=== PATIENT | male | born 1985 | race Hispanic/Latino ===

== ENCOUNTER 2017-04-12 17:31 | Emergency (ER) | payer SELFPAY ==
[2017-04-12 17:31] VITALS: BMI 25.8
[2017-04-12 18:04] VITALS: BP 122/73; PULSE 61; RESP 18; TEMP 98; O2SAT 100
--- NOTE | 2017-04-12 19:40 | C.PDOC ---
History Of Present Illness Pt is here requesting detox from Heroin. Time Seen by Provider: 04/12/17 19:16 Chief Complaint (Nursing): Substance Abuse History Per: Patient Onset/Duration Of Symptoms: Days Current Symptoms Are (Timing): Still Present Suicide/Self Injury Attempted (Context): None Modifying Factor(s): Narcotics Severity: Moderate Associated Symptoms: denies: Suicidal Thoughts, Suicidal Plan Additional History Per: Prior Records Past Medical History Reviewed: Historical Data, Nursing Documentation, Vital Signs Vital Signs: Last Vital Signs Temp 98 F 04/12/17 18:00 Pulse 61 04/12/17 18:00 Resp 18 04/12/17 18:00 BP 122/73 04/12/17 18:00 Pulse Ox 100 04/12/17 18:00 - Medical History PMH: Anxiety, Cardia Arrhythmia (SVT), Depression, Fractures (Tibia), Kidney Stones, Chronic Kidney Disease Surgical History: Appendectomy - [facility] Procedures DETOXIFICATION SERVICES FOR SUBSTANCE ABUSE TREATMENT (09/13/16) GROUP COMPUTER ENGINEERING PROFESSOR FOR SUBSTANCE ABUSE TREATMENT, PSYCHOEDUCATION (02/23/16) INDIV PSYCHOTHERAPY FOR SUBSTANCE ABUSE TREATMENT, SUPPORT (09/13/16) INDIV PSYCHOTHERAPY FOR SUBSTANCE ABUSE, COGNITIV BEHAVIORAL (09/13/16) PHARMACOTHERAPY FOR SUBSTANCE ABUSE TREATMENT, ANTABUSE (09/13/16) Family History: States: Unknown Family Hx - Social History Hx Tobacco Use: Yes Hx Alcohol Use: Yes Hx Substance Use: Yes (IVDU Heroin) - Immunization History Hx Tetanus Toxoid Vaccination: No Hx Influenza Vaccination: No Hx Pneumococcal Vaccination: No Review Of Systems Except As Marked, All Systems Reviewed And Found Negative. Constitutional: Negative for: Fever, Weakness Cardiovascular: Negative for: Chest Pain Respiratory: Negative for: Shortness of Breath Gastrointestinal: Negative for: Vomiting, Abdominal Pain Musculoskeletal: Negative for: Neck Pain Neurological: Negative for: Weakness, Numbness, Seizures Psych: Negative for: Psychosis Physical Exam - Physical Exam Appears: Non-toxic, No Acute Distress Skin: Normal Color, Warm, Dry, No Rash Head: Atraumatic, Normacephalic Eye(s): bilateral: PERRL, EOMI Neck: Normal ROM, No Midline Cervical Tenderness, No Step Off Deformity, Supple Cardiovascular: Rhythm Regular Respiratory: Normal Breath Sounds, No Accessory Muscle Use Gastrointestinal/Abdominal: Soft, No Tenderness Back: No Vertebral Tenderness Extremity: Normal ROM, Other (Track henao on arms) Neurological/Psych: Oriented x3, Normal Motor, Normal Sensation ED Course And Treatment O2 Sat by Pulse Oximetry: 100 Pulse Ox Interpretation: Normal Progress Note: There are no available detox beds tonight. Pt was given a list of available detox programs and a number to call back our program for bed availability. Disposition Counseled Patient/Family Regarding: Diagnosis, Need For Followup - Disposition Disposition: HOME/ ROUTINE Disposition Time: 19:40 Condition: STABLE Additional Instructions: Follow up with your doctor and with a detox program. Return to the ER if you develop worsening of symptoms or if you have any other concerns. Instructions: Narcotic Abuse (ED) - Clinical Impression Clinical Impression: Heroin abuse
== END 2017-04-12 20:01 | disposition home or self-care (01) ==
LOC: C.ER 17:31
DX: F11.10 Opioid abuse, uncomplicated (principal)

== ENCOUNTER 2017-08-07 00:23 | Emergency (ER) | payer SELFPAY ==
[2017-08-07 00:24] VITALS: BMI 25.8
[2017-08-07 00:50] VITALS: BP 120/72; PULSE 95; RESP 20; TEMP 98.2; O2SAT 96
--- NOTE | 2017-08-07 00:57 | C.PDOC ---
History Of Present Illness 31 year old male, whose PMHx includdes IV Drug Abuse, presents to the ED for evaluation of redness to the injection site on his right hand which began around 2 days ago. Patient is also requesting heroin detox and denies fever, chills, or hand trauma at this time. Time Seen by Provider: 08/07/17 00:46 Chief Complaint (Nursing): Upper Extremity Problem/Injury History Per: Patient History/Exam Limitations: no limitations Onset/Duration Of Symptoms: Hrs Current Symptoms Are (Timing): Still Present Quality: "Pain" Additional History Per: Patient Past Medical History Reviewed: Historical Data, Nursing Documentation, Vital Signs Vital Signs: Last Vital Signs Temp 98.2 F 08/07/17 00:42 Pulse 95 H 08/07/17 00:42 Resp 20 08/07/17 00:42 BP 120/72 08/07/17 00:42 Pulse Ox 96 08/07/17 04:33 - Medical History PMH: Anxiety, Cardia Arrhythmia (SVT), Depression, Fractures (Tibia), Kidney Stones, Chronic Kidney Disease Denies: HIV, HTN, Seizures, Sexually Transmitted Disease Surgical History: Appendectomy - [facility] Procedures DETOXIFICATION SERVICES FOR SUBSTANCE ABUSE TREATMENT (09/13/16) GROUP RUG TOUCH UP PAINTER FOR SUBSTANCE ABUSE TREATMENT, PSYCHOEDUCATION (02/23/16) INDIV PSYCHOTHERAPY FOR SUBSTANCE ABUSE TREATMENT, SUPPORT (09/13/16) INDIV PSYCHOTHERAPY FOR SUBSTANCE ABUSE, COGNITIV BEHAVIORAL (09/13/16) PHARMACOTHERAPY FOR SUBSTANCE ABUSE TREATMENT, ANTABUSE (09/13/16) Family History: States: Unknown Family Hx - Social History Hx Tobacco Use: Yes Hx Alcohol Use: Yes Hx Substance Use: Yes (IVDU Heroin) - Immunization History Hx Tetanus Toxoid Vaccination: No Hx Influenza Vaccination: No Hx Pneumococcal Vaccination: No Review Of Systems Constitutional: Negative for: Fever, Chills Musculoskeletal: Positive for: Hand Pain (right ) Psych: Positive for: Other (requesting heroin detox ) Physical Exam - Physical Exam Appears: Non-toxic, No Acute Distress Skin: Normal Color, Warm, Dry, Other (small scattered puncture wounds and localized erythema to dorsal aspect of right hand and wrist. no proximal streaking. no fluctuance. Multiple puncture wounds noted to left hand. No erythema or swelling ) Head: Atraumatic, Normacephalic Eye(s): bilateral: Normal Inspection Chest: Symmetrical, No Deformity Cardiovascular: Rhythm Regular Respiratory: Normal Breath Sounds Extremity: Normal ROM, No Tenderness, Capillary Refill (less than 2 seconds ), No Deformity, Swelling (minimal, to dorsal aspect of right hand and wrist ) Pulses: Left Radial: Normal, Right Radial: Normal Neurological/Psych: Oriented x3, Normal Speech, Normal Cognition Gait: Steady ED Course And Treatment O2 Sat by Pulse Oximetry: 96 (on RA) Pulse Ox Interpretation: Normal Progress Note: Patient received Bactrim PO and Keflex PO. Case discussed with driver utility worker, Joanna, who evaluated patient at bedside. Patient was informed about the unavailability of detox beds at this time. Patient is resting comfortably and is stable for discharge. Patient was provided with information to inquire about future availability of beds and is advised to return to ED for wound check in 2 days and follow up with his PMD/clinic within 1-2 days for further evaluation. Disposition Counseled Patient/Family Regarding: Diagnosis, Need For Followup, Rx Given - Disposition Referrals: [facility] [Outside] Disposition: HOME/ ROUTINE Disposition Time: 00:53 Condition: STABLE Additional Instructions: Apply warm compress to area Take meds as directed wound check in 2 days Return to ER if worse Prescriptions: Cephalexin [cephalexin] 500 mg PO QID #28 cap Sulfamethoxazole/Trimethoprim [Bactrim DS 800 mg-160 mg] 1 tab PO BID #14 tab Instructions: Cellulitis (ED) Forms: [facility] (Czech) - Clinical Impression Clinical Impression: Cellulitis, Heroin abuse, Intravenous drug abuse - PA / TRUCK OPERATOR / Resident Statement MD/DO has reviewed & agrees with the documentation as recorded. - Scribe Statement The provider has reviewed the documentation as recorded by the Scribe (Elva Fitzpatrick) All medical record entries made by the Scribe were at my direction and personally dictated by me. I have reviewed the chart and agree that the record accurately reflects my personal performance of the history, physical exam, medical decision making, and the department course for this patient. I have also personally directed, reviewed, and agree with the discharge instructions and disposition.
[2017-08-07] MEDS ORDERED: Tmp-Smz 800 mg-160 mg DS Tab PO STA (00:58)
[2017-08-07] MEDS ORDERED: Tmp-Smz 800 mg-160 mg DS Tab ONE (00:58)
== END 2017-08-07 01:09 | disposition home or self-care (01) ==
LOC: C.ER 00:23
DX: F11.10 Opioid abuse, uncomplicated (principal); L03.113 Cellulitis of right upper limb; Z87.891 Personal history of nicotine dependence; N18.9 Chronic kidney disease, unspecified; I47.1 Supraventricular tachycardia; I49.9 Cardiac arrhythmia, unspecified

== ENCOUNTER 2018-12-17 23:42 | Emergency (ER) | payer MEDICAID, MEDICARE, OTHER ==
[2018-12-17 23:42] VITALS: BMI 25.8
[2018-12-17 23:49] VITALS: RESP 16; TEMP 98; O2SAT 99
--- NOTE | 2018-12-17 23:56 | C.PDOC ---
History Of Present Illness 33 year old male is brought to the ED by ambulance and [facility] for medical clearance for incarceration Patient admits to using around 30-40 bags of heroin intravenously, to his bilateral ankle veins. Patient denies suicidal/homicidal ideation, nausea, vomiting, diarrhea. Time Seen by Provider: 12/17/18 23:53 Chief Complaint (Nursing): Substance Abuse History Per: Patient History/Exam Limitations: no limitations Onset/Duration Of Symptoms: Hrs Current Symptoms Are (Timing): Still Present Modifying Factor(s): Other (heroin) Additional History Per: Patient, Law Enforcement Past Medical History Reviewed: Historical Data, Nursing Documentation, Vital Signs Vital Signs: Last Vital Signs Temp 98 F 12/17/18 23:44 Pulse 67 12/17/18 23:44 Resp 16 12/17/18 23:44 BP 131/67 12/17/18 23:44 Pulse Ox 99 12/17/18 23:44 - Medical History PMH: Anxiety, Cardia Arrhythmia (SVT), Depression, Fractures (Tibia), Kidney Stones Denies: HIV, HTN, Chronic Kidney Disease, Seizures, Sexually Transmitted Disease Surgical History: Appendectomy - [facility] Procedures DETOXIFICATION SERVICES FOR SUBSTANCE ABUSE TREATMENT (09/13/16) GROUP PROPELLER LAYOUT WORKER FOR SUBSTANCE ABUSE TREATMENT, PSYCHOEDUCATION (02/23/16) INDIV PSYCHOTHERAPY FOR SUBSTANCE ABUSE TREATMENT, SUPPORT (09/13/16) INDIV PSYCHOTHERAPY FOR SUBSTANCE ABUSE, COGNITIV BEHAVIORAL (09/13/16) PHARMACOTHERAPY FOR SUBSTANCE ABUSE TREATMENT, ANTABUSE (09/13/16) Family History: States: Unknown Family Hx - Social History Hx Tobacco Use: Yes Hx Alcohol Use: Yes Hx Substance Use: Yes - Immunization History Hx Tetanus Toxoid Vaccination: No Hx Influenza Vaccination: No Hx Pneumococcal Vaccination: No Review Of Systems Gastrointestinal: Negative for: Nausea, Vomiting, Diarrhea Psych: Positive for: Withdrawal (heroin ) Physical Exam - Physical Exam Appears: Non-toxic, No Acute Distress Skin: Normal Color, Warm, Dry Head: Atraumatic, Normacephalic Eye(s): bilateral: Normal Inspection, PERRL, EOMI Oral Mucosa: Moist Neck: Supple Chest: Symmetrical, No Deformity, No Tenderness Extremity: Normal ROM, Capillary Refill (less than 2 seconds ), Other (track henao to bilateral ankle regions. no signs of infection ) Pulses: Left Dorsalis Pedis: Normal, Right Dorsalis Pedis: Normal Neurological/Psych: Normal Speech, Normal Cognition ED Course And Treatment O2 Sat by Pulse Oximetry: 99 (on RA) Pulse Ox Interpretation: Normal Medical Decision Making Medical Decision Making: heroine abuse, BIBA/[employer] under arrest. 30-40 bags/day tract henao b/l ankles, not infected normal pupils, no w/d s/s now Medically cleared for incarceration Disposition Doctor Will See Patient In The: Office Counseled Patient/Family Regarding: Studies Performed, Diagnosis - Disposition Referrals: Alcoholics Anonymous [Outside] [facility] [Outside] [facility] [Outside] [facility] [Outside] [facility] [Outside] [facility] [Outside] Disposition: HOME/ ROUTINE Disposition Time: 23:55 Condition: GOOD Additional Instructions: PT IS MEDICALLY CLEARED FOR INCARCERATION Instructions: Opioid Use Disorder Forms: [facility] (Georgian) - Clinical Impression Clinical Impression: Heroin abuse - Scribe Statement The provider has reviewed the documentation as recorded by the Scribe (Elva Fitzpatrick) Provider Attestation: All medical record entries made by the Scribe were at my direction and personally dictated by me. I have reviewed the chart and agree that the record accurately reflects my personal performance of the history, physical exam, medical decision making, and the department course for this patient. I have also personally directed, reviewed, and agree with the discharge instructions and di sposition.
[2018-12-18 00:17] VITALS: BP 120/60; PULSE 65
== END 2018-12-18 00:13 | disposition home or self-care (01) ==
LOC: C.ER 23:42
DX: F11.10 Opioid abuse, uncomplicated (principal)

== ENCOUNTER 2019-01-05 10:34 | Inpatient (IN) | payer MEDICAID, OTHER ==
[2019-01-05 10:34] VITALS: BMI 25.8
[2019-01-05 11:28] LABS: SQUAMOUS EPITHIAL < 1 /hpf (0-5); URINE BILIRUBIN NEGATIVE (NEGATIVE); URINE BLOOD NEGATIVE (NEGATIVE); URINE CLARITY Clear (Clear); URINE COLOR Yellow (YELLOW); URINE GLUCOSE (UA) NORMAL (Normal); URINE LEUKOCYTE ESTERASE NEG Leu/uL (Negative); URINE PROTEIN NEGATIVE (NEGATIVE); URINE UROBILINOGEN NORMAL mg/dL (0.2-1.0)
--- NOTE | 2019-01-05 11:34 | C.PDOC ---
History Of Present Illness 33 year old male presents to ED requesting detox from heroin and Xanax. Patient states that he last used today at around 1 am. Patient states that he is currently taking azithromycin. Patient admits to smoking and drinking. Patient h as a PMHx of SVT. Patient has no other physical complaints. Time Seen by Provider: 01/05/19 10:49 Chief Complaint (Nursing): Substance Abuse History Per: Patient History/Exam Limitations: no limitations Current Symptoms Are (Timing): Still Present Suicide/Self Injury Attempted (Context): None Modifying Factor(s): Other (heroin, xanax) Associated Symptoms: denies: Suicidal Thoughts, Suicidal Plan Past Medical History Reviewed: Historical Data, Nursing Documentation, Vital Signs Vital Signs: Last Vital Signs Temp 97.4 F L 01/05/19 10:40 Pulse 69 01/05/19 10:40 Resp 18 01/05/19 10:40 BP 133/77 01/05/19 10:40 Pulse Ox 99 01/05/19 10:40 - Medical History PMH: Anxiety, Cardia Arrhythmia (SVT), Depression, Fractures (Tibia), Kidney St ones, Chronic Kidney Disease Denies: HIV, HTN, Seizures, Sexually Transmitted Disease Surgical History: Appendectomy - [facility] Procedures DETOXIFICATION SERVICES FOR SUBSTANCE ABUSE TREATMENT (09/13/16) GROUP BRICK PAVER FOR SUBSTANCE ABUSE TREATMENT, PSYCHOEDUCATION (02/23/16) INDIV PSYCHOTHERAPY FOR SUBSTANCE ABUSE TREATMENT, SUPPORT (09/13/16) INDIV PSYCHOTHERAPY FOR SUBSTANCE ABUSE, COGNITIV BEHAVIORAL (09/13/16) PHARMACOTHERAPY FOR SUBSTANCE ABUSE TREATMENT, ANTABUSE (09/13/16) Family History: States: Unknown Family Hx - Social History Hx Tobacco Use: Yes Hx Alcohol Use: Yes Hx Substance Use: Yes - Immunization History Hx Tetanus Toxoid Vaccination: No Hx Influenza Vaccination: No Hx Pneumococcal Vaccination: No Review Of Systems Constitutional: Negative for: Fever, Chills, Weakness Cardiovascular: Negative for: Chest Pain, Palpitations Respiratory: Negative for: Cough, Shortness of Breath Gastrointestinal: Negative for: Nausea, Vomiting, Abdominal Pain Neurological: Negative for: Weakness, Numbness, Dizziness Psych: Negative for: Suicidal ideation Physical Exam - Physical Exam Appears: Non-toxic, No Acute Distress, Unkempt Skin: Normal Color, Warm, Dry Head: Atraumatic, Normacephalic Eye(s): bilateral: Normal Inspection, PERRL, EOMI Oral Mucosa: Moist Neck: Normal ROM, Supple Chest: Symmetrical Cardiovascular: Rhythm Regular, No Murmur Respiratory: No Accessory Muscle Use, No Rales, No Rhonchi, No Wheezing Gastrointestinal/Abdominal: Soft, No Tenderness Extremity: Other (track henao to the distal medial aspect of the bilateral lower extremities) Pulses: Left Dorsalis Pedis: Normal, Right Dorsalis Pedis: Normal Neurological/Psych: Oriented x3, Normal Speech, Normal Cognition ED Course And Treatment - Laboratory Results Result Diagrams: 01/05/19 11:27 01/05/19 11:27 O2 Sat by Pulse Oximetry: 99 (in RA) Medical Decision Making Medical Decision Making: Impression: 33 year old male presents to ED requesting detox from heroin and Xanax. Plan: Labs ordered with drug screen and UA Patient medically cleared. Updates: 1445: Crisis called. Patient accepted by Dr. Saleem. Disposition - Disposition Disposition: HOSPITALIZED Disposition Time: 14:45 Condition: STABLE Forms: [facility] (Spanish) - POA Present On Arrival: None - Clinical Impression Clinical Impression: Polysubstance abuse - Scribe Statement The provider has reviewed the documentation as recorded by the Scribe (Bhargavi Freed) All medical record entries made by the Scribe were at my direction and personally dictated by me. I have reviewed the chart and agree that the record accurately reflects my personal performance of the history, physical exam, medical decision making, and the department course for this patient. I have also personally directed, reviewed, and agree with the discharge instructions and disposition.
[2019-01-05 11:36] LABS: BASO # 0.1 K/uL (0.0-0.2); BASO % 0.9 % (0.0-2.0); EOS # 0.1 K/uL (0.0-0.7); EOS % 1.1 % (0.0-4.0); HEMOGLOBIN 12.7 g/dL (12.0-18.0); LYMPH # 1.7 K/uL (1.0-4.3); LYMPH % 17.5 % (20.0-40.0); MEAN CELL VOLUME 85.8 fL (80.0-94.0); MEAN CORPUSCULAR HEMOGLOBIN 28.6 pg (27.0-31.0); MEAN CORPUSCULAR HGB CONC 33.3 g/dL (33.0-37.0); MEAN PLATELET VOLUME 10.1 fL (7.2-11.7); MONO # 0.7 K/uL (0.0-0.8); MONO % 6.8 % (0.0-10.0); NEUT # 7.2 K/uL (1.8-7.0); NEUT % 73.7 % (50.0-75.0); NRBC % 0.1 % (0.0-2.0); RBC 4.45 Mil/uL (4.40-5.90); WHITE BLOOD COUNT 9.7 K/uL (4.8-10.8)
[2019-01-05 12:04] LABS: ALB/GLOB RATIO 1.5 (1.0-2.1); ALBUMIN 4.1 g/dL (3.5-5.0); ALT/SGPT 31 U/L (21-72); AST/SGOT 32 U/L (17-59); BLOOD UREA NITROGEN 20 mg/dL (9-20); GFR NON-AFRICAN AMERICAN > 60
[2019-01-05 12:17] LABS: PHENCYCLIDINE, UR NEGATIVE (NEGATIVE)
[2019-01-05 13:28] LABS: BARBITURATES, UR NEGATIVE (NEGATIVE)
[2019-01-05 13:33] LABS: BENZODIAZEPINES, UR POSITIVE (NEGATIVE); OPIATES, UR POSITIVE (NEGATIVE)
--- NOTE | 2019-01-05 16:46 | PCM.BM ---
<Sean Walls - Last Filed: 01/05/19 16:44> Treatment Plan Problems - Problems identified on initial assessmt denial Date Initiated: 01/05/19 Time Initiated: 16:44 Assessment reference: NA Status: Active defensive coping Date Initiated: 01/05/19 Time Initiated: 16:45 Assessment reference: NA Status: Active hopelessness Date Initiated: 01/05/19 Time Initiated: 16:46 Assessment reference: NA Status: Active Treatment assets and liabiliti Patient Assests: adapts well, cooperative, ADL independent, cognitively intact Patient Liabilities: substance abuse, medical problems - Milieu Protocol Maintain good personal hygiene: daily Encourage regular showers, daily Remind patient to perform daily oral care, daily Assist patient to perform ADL's Conduct patient checks and document Observation sheet: Q15 minutes Maintain personal safety: every shift Educate patient to report safety concerns to staff, every shift Monitor environment for contraband/sharps Medication safety: Monitor for expected outcome, potential side effects: every shift, Assess barriers to learning: every shift, Assess readiness for medication education: every shift <Cisco Bailey - Last Filed: 01/07/19 15:10> - Diagnosis (1) Opioid use disorder, severe, dependence Status: Acute Interventions: 01/07/19 15:11 * Assess/adjust medications daily and /or as needed * See patient on an individual basis 7x/week to assess symptoms of depression * Monitor for side effects & effectiveness of medications (2) Sedative, hypnotic or anxiolytic use disorder, severe, dependence Status: Acute Interventions: 01/07/19 15:12 * Assess/adjust medications daily and /or as needed * See patient on an individual basis 7x/week to assess symptoms of depression * Monitor for side effects & effectiveness of medications (3) Cocaine use disorder, severe, dependence Status: Acute Interventions: 01/07/19 15:12 * Assess/adjust medications daily and /or as needed * See patient on an individual basis 7x/week to assess symptoms of depression * Monitor for side effects & effectiveness of medications <Eunice Goldstein - Last Filed: 01/08/19 10:18> Family Contact Family involvement: Famliy/SO not involved - Goals for Treatment Patient goals for treatment: COMPLETE DETOX AND APPLY FOR SHORT-TERM REHAB. Discharge/Continuing Care - Education Needs Education Needs: Patient Medication, Patient Diagnosis/Disease Process, Patient Coping Skills, Patient Anger Management skills, Patient Placement options, Patient Community resources - Discharge Discharge Criteria: Free of agitation, No longer exhibiting s/s of withdrawal, Reduction of target symptoms Discharge to:: Substance Abuse Rehab - Treatment Team Participation Patient/Family/SO Statement: 01/08/19 10:18 "I'LL TRY SHORT-TERM" Discussed with Family/SO: No Was Patient/Family/SO present at Treatment Team Meeting: Yes
[2019-01-05] MEDS ORDERED: Aluminum Hydroxide/Magnesium Hydroxide Susp (30 mL) PO PRN (21:42)
[2019-01-05] MEDS ORDERED: Magnesium Hydroxide Susp 30 ml UD PO PRN (21:42)
--- NOTE | 2019-01-06 16:10 | PCM.PSYCH ---
Initial Psychiatric Evaluation - Initial Psychiatric Evaluation Type of Admission: Voluntary Legal Status: Capacity Chief Complaint (in patient's own words): I am here to detox from my substance use. History of Present Illness and Precipitating Events: Patient is a 33 years old, single, unemployed, male with no previous psychiatric history, was admitted due to withdrawing from heroine and Xanax. Opioid: According to patient he started using heroin about 10 years ago. Before that patient was taking OxyContin which was prescribed. Patient started taking OxyContin more than prescribed and later switched to heroin. Currently he was taking 20-30 bags of heroin daily, IV. His last use of heroin was 2 days ago. His longest period of abstinence was 2-3 months in the past. He has history of 1 previous detox at [facility] in 2016, no rehabs. Anxiolytic: Patient reported he started using Xanax a few years ago, was taking 2-3 stakes of Xanax, each of 2 mg, daily. Last used of Xanax was 2 days ago. Cocaine: Patient reported that he started taking cocaine 10 years ago, was taking 20-30 bottles of cocaine daily, IV. Last use 2 days ago. Patient also smokes 1 pack of cigarettes daily and is requesting for nicotine patch. Patient has extensive legal history. As a youth he was in [place] several times. Patient also served time in [facility] for armed robbery. Patient is not on probation or parole. Patient was born in [place] and has high school graduation. Patient is not working. He is homeless. Never and has no children. Current Medications: Active Medications Generic Name Dose Route Start Last Admin Trade Name Freq PRN Reason Stop Dose Admin Al Hydrox/Mg Hydrox/Simethicone 30 ml 01/05/19 21:42 Maalox 30 Ml PO TID PRN Indigestion / Heartburn Clonidine HCl 0.1 mg 01/05/19 21:33 01/05/19 21:48 Catapres PO 0.1 mg Q4 PRN Administration COWS Score More or Equal to 5 Dicyclomine HCl 10 mg 01/05/19 21:33 Bentyl PO Q6 PRN Muscle spasm Gabapentin 400 mg 01/06/19 10:00 01/06/19 13:41 Neurontin PO 400 mg TID YA Administration Hydroxyzine HCl 50 mg 01/05/19 21:34 01/05/19 21:48 Atarax PO 50 mg Q6H PRN Administration Anxiety Loperamide HCl 2 mg 01/05/19 21:33 Imodium PO Q8 PRN Diarrhea Lorazepam 1 mg 01/06/19 15:30 Ativan PO 01/10/19 15:29 Q4 YA Taper Magnesium Hydroxide 30 ml 01/05/19 21:42 Milk Of Magnesia PO 01/08/19 10:01 BID PRN Constipation Methadone HCl 15 mg 01/07/19 10:00 Methadone PO 01/10/19 09:59 Q24H YA Taper Nicotine 1 patch 01/06/19 10:00 01/06/19 10:57 Nicoderm Cq TD 1 patch DAILY YA Administration Trazodone HCl 100 mg 01/05/19 21:36 01/05/19 21:48 Desyrel PO 100 mg HS PRN Administration Sleep Past Psychiatric History - Past Psychiatric History Previous Treatment History: Inpatient [facility]: [facility] History of Abuse: None reported History of ETOH/Drug Use: See HPI History of Family Illness: None reported Pertinent Medical Hx (Current Medical&Sleep Prob, Allergies): Allergies Allergy/AdvReac Type Severity Reaction Status Date / Time erythromycin base Allergy RASH Verified 01/05/19 10:43 No Known Home Med 12/17/18 Review of Systems - Psychiatric Psychiatric: As Per HPI, Anhedonia, Anxiety Mental Status Examination - Personal Presentation Personal Presentation: Looks stated age - Affect Affect: Other (Appropriate) - Motor Activity Motor Activity: Calm - Reliability in Providing Information Reliability in Providing Information: Fair - Speech Speech: Organized - Mood Mood: Anxious - Formal Thought Process Formal Thought Process: No Impairment - Hallucinations/Delusions Hallucinations: Other (None reported) Delusions: Other - Obsessions/Compulsions Obsessions: None Compulsions: None - Cognitive Functions Orientation: Person, Place, Situation, Time Sensorium: Alert Attention/Concentration: Attentive Abstract Thinking: [place] Estimate of Intelligence: Average Judgement: Intact, as evidence by: Insight regarding need for hospitalization Memory: Recent intact, as evidence by: Ability to recall events of the day, Remote intact, as evidenced by: Ability to recall historical events - Risk Risk: Withdrawal, Diminished functioning - Strength & Assets Inventory Strength & Assets Inventory: Cooperative - Limitations Limitations: Other (Homeless) DSM 5 DX - DSM 5 DSM 5 Diagnosis: Opioid withdrawal Opioid use disorder severe Anxiolytic withdrawal Angiolytic use disorder severe Cocaine use disorder severe - Recommended/Plan of Treatment Treatment Recommendations and Plan of Treatment: Patient education. Supportive therapy. CBT for relapse prevention. Family for abstinence. Will start methadone taper for opioid withdrawal symptoms. Will start Ativan taper for anxiolytic withdrawal symptoms. Other as needed medication. Nicotine patch for cigarette smoking. Projected ELOS: 4-5 days Discharge Plan and Discharge Criteria: No or minimal withdrawal from substance abuse. - Smoking Cessation Smoking Cessation Initiated: Yes
--- NOTE | 2019-01-07 15:06 | PCM.PYCHPN ---
Psychiatric Progress Note - Psychiatric Progress Note Patient seen today, length of contact: 15 minutes Patient Chief Complaint: I am feeling little better. Problems Identified/Issues Discussed: Patient seen, chart reviewed, case discussed with the staff. Issues related to illness and treatment were discussed with the patient and staff. Reported compliance with treatment with no adverse effect. Tolerating treatment very well. Patient reported feeling little better, still has withdrawal symptoms including body aches, sweating, nausea, decreased sleep and headache. Mood reported as anxious. Affect appropriate. Aftercare discussed with the patient. Patient denied any delusions, auditory or visual hallucinations, no suicidal ideations or homicidal ideations at the time of the evaluation. Medical Problems: None reported Diagnostic Results: Reviewed DSM 5 Symptoms Update: Some improvement with treatment. Medication Change: No Medical Record Reviewed: Yes Mental Status Examination - Cognitive Function Orientation: Person, Place, Situation, Time Memory: Intact Attention: WNL Concentration: WNL Association: [facility] Fund of Knowledge: [facility] Decription of patient's judgement and insights: Fair - Mood Mood: Anxious - Affect Affect: Other (Appropriate) - Speech Speech: Appropriate - Formal Thought Process Formal Thought Process: No Impairment Psychotic Thoughts and Behaviors: None - Suicidal Ideation Suicidal Ideation: No - Homicidal Ideation Homicidal Ideation: No Goal/Treatment Plan - Goal/Treatment Plan Need for Continued Stay: Remain at risks for inpatient hospitalization, Discharge may exacerbated symptoms, Severe functional impairment Progress Toward Problem(s) and Goals/Treatment Plan: Patient education. Supportive therapy. CBT for relapse prevention. [place] for abstinence. Continue treatment as before. Estimated Date of D/C: 01/09/19 - Smoking Cessation Smoking Cessation Initiated: Yes
[2019-01-08] MEDS: buPROPion 150 mg/24 Hours XL Tab PO SCH (14:26)
--- NOTE | 2019-01-08 23:48 | PCM.PYCHPN ---
Psychiatric Progress Note - Psychiatric Progress Note Patient seen today, length of contact: 15 minutes Patient Chief Complaint: I am feeling little better. Problems Identified/Issues Discussed: Patient seen, chart reviewed, case discussed with the staff. Issues related to illness and treatment were discussed with the patient and staff. Reported compliance with treatment with no adverse effect. Tolerating treatment very well. Patient reported feeling little better, still has some withdrawal symptoms including body aches, sweating, nausea, decreased sleep and headache. Mood reported as anxious. Affect appropriate. Aftercare discussed with the patient. Patient denied any delusions, auditory or visual hallucinations, no suicidal ideations or homicidal ideations at the time of the evaluation. Medical Problems: None reported Diagnostic Results: Reviewed DSM 5 Symptoms Update: Some improvement with treatment. Medication Change: No Medical Record Reviewed: Yes Mental Status Examination - Cognitive Function Orientation: Person, Place, Situation, Time Memory: Intact Attention: WNL Concentration: WNL Association: [facility] Fund of Knowledge: [facility] Decription of patient's judgement and insights: Fair - Mood Mood: Anxious - Affect Affect: Other (Appropriate) - Speech Speech: Appropriate - Formal Thought Process Formal Thought Process: No Impairment Psychotic Thoughts and Behaviors: None - Suicidal Ideation Suicidal Ideation: No - Homicidal Ideation Homicidal Ideation: No Goal/Treatment Plan - Goal/Treatment Plan Need for Continued Stay: Remain at risks for inpatient hospitalization, Discharge may exacerbated symptoms, Severe functional impairment Progress Toward Problem(s) and Goals/Treatment Plan: Patient education. Supportive therapy. CBT for relapse prevention. [place] for abstinence. Continue treatment as before. Estimated Date of D/C: 01/09/19 - Smoking Cessation Smoking Cessation Initiated: Yes
[2019-01-09] MEDS: buPROPion 150 mg/24 Hours XL Tab PO SCH (09:25)
[2019-01-09 09:36] VITALS: RESP 18; O2SAT 98
[2019-01-09 14:13] VITALS: BP 133/74; PULSE 79; TEMP 97.9
--- NOTE | 2019-01-09 17:57 | CP.PCM.PN ---
Subjective - Date & Time of Evaluation Date of Evaluation: 01/09/19 Time of Evaluation: 11:00 - Subjective Subjective: Patient was seen today, reports doing better with no withdrawal symptoms at this time. Objective - Vital Signs/Intake and Output Vital Signs (last 24 hours): Temp Pulse Resp BP Pulse Ox 97.9 F 79 18 133/74 98 01/09/19 14:12 01/09/19 14:12 01/09/19 14:12 01/09/19 14:12 01/09/19 14:12 - Labs Labs: 01/05/19 11:27 01/05/19 11:27
--- NOTE | 2019-01-09 18:08 | PCM.PYCHPN ---
Psychiatric Progress Note - Psychiatric Progress Note Patient seen today, length of contact: 15 minutes Patient Chief Complaint: I am ready for discharge tomorrow Problems Identified/Issues Discussed: Patient was seen and chart was reviewed. Case was discussed with staff. Issued related to the illness and treatment were discussed with the patient, and issues related to illness and treatment were discussed with the the patient and staff. Patient reported compliance with treatment and no adverse effects from the medications were reported. Patient is tolerating treatment well at this time. Patient reports minimal withdrawal symptoms such as body aches, sweating, nausea, decreased sleep or headaches at this time. Patient reports mood as improved, affect is congruent with mood. Aftercare was discussed with patient and he verbalized understanding. Patient denies any delusions, auditory/visual hallucinations, or perceptual disturbances. Patient also denies any suicidal or homicidal ideation/plan/intent at this time. Medical Problems: None reported Diagnostic Results: Reviewed Medication Change: No Medical Record Reviewed: Yes Consults ordered or reviewed: None Mental Status Examination - Cognitive Function Orientation: Person, Place, Situation, Time Memory: Intact Attention: WNL Concentration: WNL Association: [facility] Fund of Knowledge: [facility] Decription of patient's judgement and insights: Fair - Mood Mood: Anxious, Euphoric - Affect Affect: Other (Appropriate) Additional comments: Congruent - Speech Speech: Appropriate - Language Additional comments: WNL - Formal Thought Process Formal Thought Process: No Impairment Psychotic Thoughts and Behaviors: None - Suicidal Ideation Suicidal Ideation: No - Homicidal Ideation Homicidal Ideation: No Goal/Treatment Plan - Goal/Treatment Plan Need for Continued Stay: Remain at risks for inpatient hospitalization, Discharge may exacerbated symptoms, Severe functional impairment Progress Toward Problem(s) and Goals/Treatment Plan: Patient psychoeducation Supportive psychotherapy provided CBT for relapse prevention [place] for abstinence Continued with treatment as before Estimated Date of D/C: 01/10/19
--- NOTE | 2019-01-10 15:48 | PCM.PYCHDC ---
Mental Status Examination - Mental Status Examination Orientation: Person, Place, Situation, Time Memory: Intact Mood: Euphoric Affect: Broad Speech: Appropriate Attention: WNL Concentration: WNL Association: [facility] Fund of Knowledge: [facility] Formal Thought Process: No Impairment Description of patient's judgement and insight: Fair Psychotic Thoughts and Behaviors: None Suicidal Ideation: No Current Homicidal Ideation?: No Plan: Patient left AMA, he was made aware aware of the risks of leaving AMA, including relapse, overdose and even , patient verbalized understanding, but still left. Discharge Summary - Discharge Note Reason for Hospitalization: Opioid Withdrawals Opioid Use Disorder, Severe Cocaine Use Disorder Consultations:: List each consultation separately and include: 1. Reason for request. 2. Findings. 3. Follow-up Consultations: None Summary of Hospital Course include:: 1. Description of specific treatment plan utilized for patients during their course of treatmen. 2. Summarize the time- course for resolution of acute symptoms and/or regressed behaviors. 3. Describe issues identified and worked on during hospitalization. 4. Describe medication utilized. 5. Describe medical problems identified and treated. 6. Reassessment of suicide risk Summary of Hospital Course: The pt was admitted and started on treatment with psychotherapy, support, psychoeducation and medications. All the risks and benefits of medications are discussed and the patient understood and agreed. [place] and CBT used. The pt attended groups and activities, as well as milieu therapy. The pt improved with the treatments provided. After care discussed with the patient. - Final Diagnosis (DSM 5) Condition upon Discharge: STABLE Disposition: AGAINST MEDICAL ADVICE Follow-up Treatment Plan: Patient psychoeducation Supportive psychotherapy provided CBT for relapse prevention [place] for abstinence Continued with treatment as before
== END 2019-01-09 14:15 | disposition left against medical advice (07) ==
LOC: C.ER 10:34 → C.7D 15:08
PROVIDERS: ADMIT Psychiatry & Neurology Psychiatry; ATTEND Psychiatry & Neurology Psychiatry
DX: F11.23 Opioid dependence with withdrawal (principal); F14.20 Cocaine dependence, uncomplicated; F13.239 Sedative, hypnotic or anxiolytic dependence with withdrawal, unspecified; F17.210 Nicotine dependence, cigarettes, uncomplicated; N18.9 Chronic kidney disease, unspecified; Z59.0 Homelessness; Z87.442 Personal history of urinary calculi